=== PATIENT | female | born 2000 | race Two or more races ===

== ENCOUNTER 2024-12-21 09:52 | Emergency (ER) | payer OTHER ==
[~2024-12-21] VITALS: Ht 154.9 cm; Wt 44.0 kg
[2024-12-21 10:49] VITALS: BP 72/51; O2SAT 100
[2024-12-21] MEDS ORDERED: ACETAMINOPHEN 500 MG GEL..CAP PO STA (11:01)
[2024-12-21] MEDS ORDERED: ACETAMINOPHEN 500 MG GEL..CAP PO ONE (11:05)
[2024-12-21 11:12] LABS: BASO % 0.1 % (0.1-1.2); HEMATOCRIT 41.4 % (34.1-44.9); HEMOGLOBIN 14.1 g/dL (11.2-15.7); LYMPH # 0.74 (1.18-3.74); LYMPH % 8.2 % (19.3-53.1); MONO # 0.96 (0.24-0.82); MONO % 10.6 % (4.7-12.5); NEUT # 7.31 (1.56-6.13); NEUT % 80.5 % (34.0-71.1); PLATELET COUNT 225 K/uL (163-369); RED BLOOD COUNT 4.87 M/uL (3.93-5.22); RED CELL DISTRIBUTION WIDTH 12.5 % (11.6-14.4)
[2024-12-21 11:45] LABS: INFLUENZA A AG NEGATIVE (NEGATIVE); INFLUENZA B AG NEGATIVE (NEGATIVE)
== END 2024-12-21 12:35 | disposition home or self-care (01) ==
LOC: ER 10:17
DX: J06.9 Acute upper respiratory infection, unspecified (principal)